=== PATIENT | female | born 1995 | race Caucasian/White ===

== ENCOUNTER 2019-05-27 15:39 | Inpatient (IN) | payer MEDICAID ==
[~2019-05-27] VITALS: Ht 160 cm; Wt 57.2 kg
[2019-05-27] MEDS ORDERED: LACTATED RINGERS 1,000 ML IV SCH ×2 (16:38→16:39)
[2019-05-27] MEDS ORDERED: CARBOPROST 250 MCG/ML AMP IM PRN ×2 (16:40)
[2019-05-27] MEDS ORDERED: PROMETHAZINE 25 MG/ML VIAL IVP PRN ×2 (16:40)
[2019-05-27] MEDS ORDERED: METHYLERGONOVINE 0.2 MG/ML AMP IM PRN ×2 (16:40)
[2019-05-27] MEDS ORDERED: OXYTOCIN 20 UNITS in LACTATED RINGERS 1,000 ML IV SCH (16:40)
[2019-05-27] MEDS ORDERED: NALBUPHINE 10 MG/ML AMP IVP PRN ×2 (16:40)
[2019-05-27] MEDS ORDERED: VITA1TAB44 PO (17:42)
[2019-05-27 17:53] LABS: BASOPHILS % (AUTO) 0.2 % (0.0-2.0); EOSINOPHILS % (AUTO) 0.1 % (0.0-4.0); HEMATOCRIT 33.4 % (36-48); LYMPHOCYTES # (AUTO) 1.5 K/uL (2.5-16.5); LYMPHOCYTES % (AUTO) 16.3 % (20.5-51.1); MEAN CORPUSCULAR HEMOGLOBIN 28 pg (27-31); MEAN CORPUSCULAR HGB CONC 33 g/dL (33-37); MEAN CORPUSCULAR VOLUME 85.4 fL (80-94); MONOCYTES # (AUTO) 0.5 K/uL (0.8-1.0); MONOCYTES % (AUTO) 4.9 % (1.7-9.3); NEUTROPHILS # (AUTO) 7.2 K/uL (1.8-7.7); NEUTROPHILS % (AUTO) 78.5 % (42.2-75.2); PLATELET COUNT (AUTO) 171 K/uL (140-450); RED BLOOD CELL COUNT(AUTO) 3.91 MIL/uL (4.20-5.40); RED CELL DISTRIBUTION WIDTH 12.8 % (11.6-13.7); WHITE BLOOD COUNT (AUTO) 9.2 K/uL (4.8-10.8)
[2019-05-27 18:27] LABS: ANION GAP 15.1 (8-16); CREATININE 0.5 mg/dL (0.6-1.3); POTASSIUM 4.1 mmol/L (3.5-5.1)
[2019-05-27 18:31] LABS: APPEARANCE,URINE CLEAR (CLEAR); BILIRUBIN,URINE NEGATIVE (NEGATIVE); BLOOD, URINE NEGATIVE (NEGATIVE); COLOR,URINE YELLOW (YELLOW); LEUKOCYTE ESTERASE ,URINE NEGATIVE (NEGATIVE); NITRITE, URINE NEGATIVE (NEGATIVE); UGLUCOSE NEGATIVE (NEGATIVE)
[2019-05-27 18:42] LABS: ALBUMIN 3.1 g/dL (3.4-5.0); TOTAL BILIRUBIN 0.3 mg/dL (0.0-1.0)
[2019-05-27] MEDS ORDERED: PROMETHAZINE 25 MG/ML VIAL ONE (22:23)
[2019-05-27] MEDS ORDERED: fentaNYL 0.05 MG/ML VIAL IVP ONE (22:25)
[2019-05-27] MEDS ORDERED: fentaNYL 0.05 MG/ML VIAL ONE (22:29)
[2019-05-28] MEDS ORDERED: fentaNYL 0.05 MG/ML VIAL IVP ONE (00:05)
[2019-05-28] MEDS ORDERED: fentaNYL 0.05 MG/ML VIAL ONE (00:08)
[2019-05-28] MEDS ORDERED: BUPIVACAINE 0.125%/NS PREMIX 250 ML ONE (01:54)
[2019-05-28] MEDS ORDERED: BUPIVACAINE 0.125%/NS PREMIX 250 ML EPI SCH (02:00)
--- NOTE | 2019-05-28 08:34 | NUR ---
PATIENT HAS BEEN SCREENED AND CATEGORIZED LOW NUTRITION RISK. PATIENT WILL BE SEEN WITHIN 7 DAYS OF ADMISSION. 06/03/[address]
[2019-05-28] MEDS ORDERED: MEASLES, MUMPS, AND RUBELLA 1 VIAL SQVAC PRN (09:50)
[2019-05-28] MEDS ORDERED: BISACODYL 10 MG SUPP RC PRN (09:50)
[2019-05-28] MEDS ORDERED: METHYLERGONOVINE 0.2 MG TAB PO PRN (09:50)
[2019-05-28] MEDS ORDERED: METHYLERGONOVINE 0.2 MG/ML AMP IM PRN (09:50)
[2019-05-28] MEDS ORDERED: BENZOCAINE/MENTHOL 20%-0.5% 60 GM CAN TP PRN (09:50)
[2019-05-28] MEDS ORDERED: OXYTOCIN 10 UNITS/ML VIAL IM PRN (09:50)
[2019-05-29 05:12] LABS: HEMATOCRIT 28.3 % (36-48); HEMOGLOBIN 9.6 g/dL (12.0-16.0)
[2019-05-30] MEDS ORDERED: INFLUENZA VACCINE QUAD 0.5 ML SYR IMVAC PRN (05:35)
== END 2019-05-30 16:05 | disposition home or self-care (01) | DRG 560 ==
LOC: MLD 15:39 → MFCC 05-28 11:20
PROVIDERS: ADMIT Obstetrics & Gynecology; ATTEND Obstetrics & Gynecology
PROC: 10E0XZZ Delivery of Products of Conception, External Approach (ICD-10-PCS; principal; 2019-05-28)
PROC: 10907ZC Drainage of Amniotic Fluid, Therapeutic from Products of Conception, Via Natural or Artificial Opening (ICD-10-PCS; 2019-05-28)
PROC: 3E033VJ Introduction of Other Hormone into Peripheral Vein, Percutaneous Approach (ICD-10-PCS; 2019-05-28)
PROC: 3E0P7VZ Introduction of Hormone into Female Reproductive, Via Natural or Artificial Opening (ICD-10-PCS; 2019-05-28)
PROC: 0KQM0ZZ Repair Perineum Muscle, Open Approach (ICD-10-PCS; 2019-05-28)
PROC: 00HU33Z Insertion of Infusion Device into Spinal Canal, Percutaneous Approach (ICD-10-PCS; 2019-05-28)
PROC: 3E0R3BZ Introduction of Anesthetic Agent into Spinal Canal, Percutaneous Approach (ICD-10-PCS; 2019-05-28)
PROC: 3E0234Z Introduction of Serum, Toxoid and Vaccine into Muscle, Percutaneous Approach (ICD-10-PCS; 2019-05-29)
PROC: 3E0234Z Introduction of Serum, Toxoid and Vaccine into Muscle, Percutaneous Approach (ICD-10-PCS; 2019-05-30)
DX: O70.1 Second degree perineal laceration during delivery (principal); O41.03X0 Oligohydramnios, third trimester, not applicable or unspecified; D62 Acute posthemorrhagic anemia; O99.02 Anemia complicating childbirth; O26.893 Other specified pregnancy related conditions, third trimester; Z23 Encounter for immunization; Z37.0 Single live birth; Z3A.38 38 weeks gestation of pregnancy; Z67.41 Type O blood, Rh negative
CPT/HCPCS: 36415; 51702; 59409; 76815; 80053; 81003; 85018; 85025; 86592; 86850; 86870; 86886; 86900; 86901; 90715; J2550; J2590; J2790; J3010; J3490; J7120; Q0092